=== PATIENT | female | born 1950 | race Caucasian/White ===

== ENCOUNTER 2023-10-11 07:02 | Day surgery (SDC) | payer OTHER ==
[~2023-10-11] VITALS: Ht 162.6 cm; Wt 107.4 kg
[~2023-10-11 07:02] MED LIST: ASPI81CH PO; ATOR40TA PO; CLOP75 PO; LISI5 PO; METO25 PO; Norvasc5 MG PO; ONDA4ODT MM; TURMERIC-GINGE1 EACH PO; Vitamin B Comple1 EA PO; ZESTRIL40 M1 PO
--- NOTE | 2023-10-11 07:35 | NUR ---
10/11/23 0735 Noemi Sultana PROPARACAINE PLACED IN RIGHT EYE AT 0723 PLEDGET PLACED IN RIGHT EYE AT 0726. PT TOLERATED WELL.
[2023-10-11 08:53] VITALS: BP 148/67
== END 2023-10-11 09:04 | disposition home or self-care (01) ==
LOC: ORSCSDS 07:02
PROVIDERS: Ophthalmology
PROC: 08RJ3JZ Replacement of Right Lens with Synthetic Substitute, Percutaneous Approach (ICD-10-PCS; principal; 2023-10-11 08:30)
DX: H25.13 Age-related nuclear cataract, bilateral (principal); I10 Essential (primary) hypertension; Z86.73 Personal history of transient ischemic attack (TIA), and cerebral infarction without residual deficits; E66.9 Obesity, unspecified; Z68.41 Body mass index [BMI] 40.0-44.9, adult; Z79.82 Long term (current) use of aspirin; Z79.899 Other long term (current) drug therapy
CPT/HCPCS: J2001; J2250; J3010; J3301; J7040; V2632

== ENCOUNTER 2023-10-18 06:57 | Day surgery (SDC) | payer OTHER ==
[~2023-10-18] VITALS: Ht 162.6 cm; Wt 106.9 kg
[2023-10-18 09:06] VITALS: BP 159/77
--- NOTE | 2023-10-18 09:08 | NUR ---
10/18/23 0908 Joselyn Pace IV, DC'Poncho AT 0855/CATHETER L
== END 2023-10-18 08:59 | disposition home or self-care (01) ==
LOC: ORSCSDS 06:57
PROVIDERS: Ophthalmology
PROC: 08RK3JZ Replacement of Left Lens with Synthetic Substitute, Percutaneous Approach (ICD-10-PCS; principal; 2023-10-18 08:30)
DX: H25.12 Age-related nuclear cataract, left eye (principal); Z96.1 Presence of intraocular lens; I10 Essential (primary) hypertension; E66.9 Obesity, unspecified; Z68.41 Body mass index [BMI] 40.0-44.9, adult; Z86.73 Personal history of transient ischemic attack (TIA), and cerebral infarction without residual deficits; Z79.82 Long term (current) use of aspirin; Z79.899 Other long term (current) drug therapy
CPT/HCPCS: J2001; J2250; J3010; J3301; J7040; V2632